=== PATIENT | female | born 1955 | race Caucasian/White ===

== ENCOUNTER 2021-11-09 11:15 | Outpatient (CLI) | payer OTHER, SELFPAY ==
--- NOTE | ~2021-11-09 | US_ITS ---
EXAMINATION: US thyroid DATE: 11/09/2021 11:59 INDICATION: Nontoxic multinodular goiter TECHNIQUE: Multiple ultrasound images of the thyroid were obtained. COMPARISON: None. FINDINGS: The right thyroid lobe measures 4.8 x 2.3 x 2.7 cm. The left thyroid lobe measures 4.6 x 2.3 x 2.4 c m. There are numerous bilateral thyroid nodules the majority of which are solid or predominantly nahun id, hypoechoic with smooth margins and with small echogenic foci (TI-RADS 5, highly suspicious , FNA if >=1.0 cm, annual followup is >0.5 cm). The largest measure 1.6 cm in maximal diameter in the left thyroid and 1.2 cm in the right thyroid. IMPRESSION: 1. Multiple bilateral BI-RADS 5 nodules. Would recommend ultrasound-guided biopsy of the largest 1.6 cm left thyroid nodule and 1.2 cm right thyroid nodule. Reviewed, dictated and finalized at location A. IMPRESSION: 1. Multiple bilateral BI-RADS 5 nodules. Would recommend ultrasound-guided biop sy of the largest 1.6 cm left thyroid nodule and 1.2 cm right thyroid nodule.
== END 2021-11-09 11:16 | disposition home or self-care (01) ==
PROVIDERS: PCP Student in an Organized Health Care Education/Training Program; Visit Provider Otolaryngology
DX: E04.2 Nontoxic multinodular goiter (principal)
CPT/HCPCS: 76536

== ENCOUNTER 2022-02-19 12:36 | Outpatient (CLI) | payer OTHER, SELFPAY ==
--- NOTE | ~2022-02-19 | US_ITS ---
EXAMINATION: US FNA additional, US FNA w image guidance DATE: 02/19/2022 14:14 INDICATION: Nontoxic multinodular goiter. TECHNIQUE: A time-out was performed to verify the patient's name, date of , and procedure to be performed . The procedure and its benefits and risks were discussed with the patient. Risks specifically discus sed included bleeding and infection. The patient understood the risks and agreed to proceed. The neck was prepped and draped in the usual sterile manner. Attention was first turned to the left thyroid n odule. 3 mL 1% lidocaine was used for local anesthesia. 6 passes were made with a 25G needle into th e lesion. Appropriate needle location was documented with continuous sonographic guidance. Attention was then turned to the right thyroid nodule. An additional 3 mL 1% lidocaine was used for local anes thesia. 6 passes were made with a 25G needle into the lesion. Appropriate needle location was docume nted with continuous sonographic guidance. Sterile bandages were applied. There were no immediate com plications. FINDINGS: Grayscale ultrasound images demonstrate biopsy needles advanced into a 1.6 cm TI RADS 5 nodule in the superior left thyroid lobe. Subsequent images demonstrate biopsy needles advanced into a 1.2 cm TI R ADS 5 nodule in the inferior right thyroid lobe. IMPRESSION: 1. Successful ultrasound-guided fine needle aspiration of a 1.6 cm TI RADS 5 left thyroid nodule. 2. Successful ultrasound guided fine needle aspiration of a 1.2 cm TI RADS 5 right thyroid nodule. Reviewed, dictated and finalized at location A. 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 Successful ultrasound-guided fine needle aspiration of a 1.6 cm TI RADS 5 l eft thyroid nodule. 2. Successful ultrasound guided fine needle aspiration of a 1.2 cm TI RADS 5 ri ght thyroid nodule.
== END 2022-02-19 12:37 | disposition home or self-care (01) ==
PROVIDERS: PCP Student in an Organized Health Care Education/Training Program; Visit Provider Otolaryngology
DX: E04.2 Nontoxic multinodular goiter (principal)
CPT/HCPCS: 10005; 10006; 88173; 88305

== ENCOUNTER 2023-03-27 16:33 | Outpatient (CLI) | payer OTHER, SELFPAY ==
--- NOTE | ~2023-03-27 | US_ITS ---
EXAMINATION: US thyroid DATE: 03/27/2023 17:28 INDICATION: Nontoxic multinodular goiter TECHNIQUE: Multiple ultrasound images of the thyroid were obtained. COMPARISON: 11/09/2021 and 03/01/2022 FINDINGS: The right thyroid lobe measures 6.5 x 2.4 x 2.4 cm. The left thyroid lobe measures 5.5 x 2.6 x 2.3 c m. There is diffuse increased vascular flow throughout the thyroid. Again seen are multiple bilatera l solid hypoechoic thyroid nodules with punctate echogenic foci (TI-RADS 5, highly suspicious , FNA i f >=1.0 cm, annual followup is >0.5 cm). The largest 1.6 cm nodule in the mid left thyroid and 1.1 cm nodule in the right thyroid are without significant overall change, both biopsied in the interval de monstrating pathology consistent with benign follicular nodules. Also unchanged is a 9 mm solid hypoe choic nodule with smooth margins and without echogenic foci (TI-RADS 4, moderately suspicious , FNA i f >=1.5 cm, annual followup is >=1 cm) in the right thyroid. IMPRESSION: 1. No significant interval change in a multinodular goiter including the 2 largest nodules which were previously biopsied with pathology read as consistent with benign follicular nodule . Reviewed, dictated and finalized at location A. O OPERATOR IMPRESSION: 1. No significant interval change in a multinodular goiter including the 2 larg est nodules which were previously biopsied with pathology read as consistent wi th benign follicular nodule .
== END 2023-03-27 16:34 | disposition home or self-care (01) ==
LOC: ANHIMG 16:36
PROVIDERS: PCP Student in an Organized Health Care Education/Training Program; Visit Provider Otolaryngology
DX: E04.2 Nontoxic multinodular goiter (principal)
CPT/HCPCS: 76536